=== PATIENT | female | born 1960 | race Caucasian/White ===

== ENCOUNTER 2016-12-12 08:01 | Emergency (ER) | payer OTHER ==
[2016-12-12] MEDS ORDERED: IPRATROPIUM/ALBUTEROL 3 ML DEYVIAL ONE (08:10)
--- NOTE | 2016-12-12 08:18 | EDPHY ---
H & P Time Seen by Provider: 12/12/16 08:12 HPI/ROS: CHIEF COMPLAINT: Stridor HISTORY OF PRESENT ILLNESS: The patient presents to the ED after she developed inspiratory stridor while driving to work. The patient has a history of vocal cord dysfunction and has had this condition occur episodically. Apparently secondary to her stridor, her carpal did contact paramedics. The patient did receive an albuterol breathing treatment and now that she has arrived in the emergency department reports complete resolution of her symptoms. The patient has no history of asthma. She has had no history of recent fever or cough. She is chronically followed by ENT for her vocal cord dysfunction. The patient denies any ongoing dyspnea. She denies chest pain, fever, abdominal pain or additional complaints. REVIEW OF SYSTEMS: A comprehensive 10 point review of systems is otherwise negative aside from elements mentioned in the history of present illness. Source: Patient Exam Limitations: No limitations - Medical/Surgical History Other PMH: Past medical history: Vocal cord dysfunction - Family History Significant Family History: No pertinent family hx - Social History Smoking Status: Never smoked - Physical Exam Exam: General Appearance: Alert, no distress Eyes: Pupils equal and round no pallor or injection ENT, Mouth: Moist mucous membranes, no oropharyngeal swelling, no peritonsillar mass, no trismus Respiratory: There are no retractions, lungs are clear to auscultation, no stridor Cardiovascular: Regular rate and rhythm Gastrointestinal: Abdomen is soft and nontender, no masses, bowel sounds normal Skin: Warm and dry, no rashes Musculoskeletal: Neck is supple nontender Extremities: symmetrical, full range of motion Medical Decision Making ED Course/Re-evaluation: The patient presents to the ED after a brief self-limited episode of stridor. She has a history of known vocal cord dysfunction. At this point time her symptoms have entirely resolved. There is nothing to suggest pneumonia, acute infectious process, obstructive process or other condition which I feel requires workup at this point time. The patient would like to be discharged and go to work. She does understand to return to the emergency department for any recurrent symptoms or other concerns. She should follow up as scheduled with her primary care provider. Departure - Departure Disposition: Home, Routine, Self-Care Clinical Impression: Stridor Condition: Good Instructions: Reactive Airways Disease (ED) Additional Instructions: 1. Please return to the emergency department for any fever, recurrent symptoms of difficulty breathing, chest pain or other concerns. 2. Please follow up as scheduled with your regular physician.
[2016-12-12] MEDS ORDERED: IPRATROPIUM/ALBUTEROL 3 ML DEYVIAL IH ONE (08:20)
[2016-12-12 08:44] VITALS: RESP 16; TEMP 97.2; O2SAT 94
[2016-12-12] MEDS ORDERED: LORazepam 1 MG TAB PO ONE (08:57)
[2016-12-12 10:19] VITALS: BP 112/76; PULSE 74
== END 2016-12-12 10:19 | disposition home or self-care (01) ==
LOC: EDUNIT#
DX: R06.1 Stridor (principal)